=== PATIENT | female | born 1960 | race Caucasian/White ===

== ENCOUNTER 2019-11-05 12:19 | Emergency (ER) | payer OTHER, SELFPAY ==
[2019-11-05] VITALS (7 sets, daily range): BP systolic 110–147; BP diastolic 65–92; PULSE 67–84; RESP 16–20; TEMP 36.9; O2SAT 96–100
--- NOTE | ~2019-11-05 | CT_ITS ---
EXAMINATION: CT abdomen pelvis w con DATE: 11/05/2019 17:10 INDICATION: Left lower quadrant pain and diarrhea TECHNIQUE: Computed tomography (CT) of the abdomen and pelvis was performed with 100 cc Omnipaque 350 intravenous contrast. The dose-length product was 889.87 mGy-cm. Automated exposure control and iter ative reconstruction technique were employed. COMPARISON: None. FINDINGS: Lung bases are unremarkable. Heart size normal. No significant vascular abnormality. There is retroperitoneal, portacaval, mesenteric, right obturator and right inguinal lymphadenopathy. The liver, spleen, pancreas, adrenal glands and right kidney are unremarkable. There is a left renal cyst measuring 3.8 cm. Gallbladder is present. There are multiple segments of fluid-filled distended small bowel loops in the central abdomen with a few air-fluid levels. No acute osseous abnormality. IMPRESSION: 1. Multiple segments of mildly distended small bowel loops containing fluid with air-fluid levels whi ch may relate to infection/inflammatory process, adynamic ileus or partial obstruction. No definitive transition is identified. 2: Abdominal, pelvic and right inguinal lymphadenopathy. Consider metastatic disease and lymphoma. Th e right inguinal lymph nodes are amenable to percutaneous biopsy. Reviewed, dictated and finalized at location A. IMPRESSION: 1. Multiple segments of mildly distended small bowel loops containing fluid wit h air-fluid levels which may relate to infection/inflammatory process, adynamic ileus or partial obstruction. No definitive transition is identified. 2: Abdominal, pelvic and right inguinal lymphadenopathy. Consider metastatic di sease and lymphoma. The right inguinal lymph nodes are amenable to percutaneous biopsy.
[2019-11-05 13:38] LABS: Hematocrit 41.7 % (37.0-47.0); Hemoglobin 13.4 g/dL (12.0-15.0); Mean Corpuscular HGB Conc 32.1 g/dl (32-36); Mean Corpuscular Hemoglobin 28.6 pg (26-34); Mean Corpuscular Volume 88.9 fl (80-100); Mean Platelet Volume 11.4 fl (7.4-10.4); Platelet Count Result 176 k/mm3 (150-375); Red Blood Count 4.69 M/mm3 (4.2-5.4); Red Cell Distribution Width 14.9 % (11.5-14.5); White Blood Count 33.4 K/mm3 (4.5-10.0)
[2019-11-05 13:54] LABS: Alanine Aminotransferase 24 U/L (4-35); Albumin Level 4.1 g/dL (3.5-5.1); Alkaline Phosphatase 89 U/L (38-126); Aspartate Amino Transferase 30 U/L (14-36); Bilirubin,Total 0.6 mg/dL (0.2-1.3); Blood Urea Nitrogen 10 mg/dL (7-17); Calcium 8.8 mg/dL (8.4-10.2); Carbon Dioxide 26 mmol/L (22-30); Chloride 103 mmol/L (98-107); Estimated CRCL calculation 106 ml/min; Estimated Glomerular Filt Rate > 60; Glucose 132 mg/dL (65-105); Lipase 123 U/L (23-300); Potassium 3.9 mmol/L (3.4-5.0); Sodium 136 mmol/L (137-145)
[2019-11-05 14:11] LABS: Lymphocytes Absolute Manual 22.37 K/mm3 (1.1-4.5); Monocytes Absolute Manual 1.67 K/mm3 (0.1-0.90); Monocytes Percent Manual 5 % (3-9); Neutrophils Percent Manual 28 % (46-73); Platelet Estimate Adequate (Adequate); Total Cells Counted 100
[2019-11-05 14:12] LABS: Atypical Lymphocytes Present; Smudge Cells MODERATE
[2019-11-05 14:13] LABS: Hyperchromasia 2+ (NORMAL)
[2019-11-05 16:01] LABS: Add Urine Microscopic? YES; Appearance Urine Clear (Clear); Bacteria Urine Trace /hpf; Bilirubin Urine Negative (Negative); Blood Urine Negative (Negative); Color Urine Yellow (Yellow); Glucose Urine UA Negative (Negative); Ketones Urine Negative (Negative); Leukocyte Esterase Ur Negative LEU/UL (Negative); Mucus Urine Rare /lpf; Nitrate Urine Negative (Negative); Protein Urine Negative (Negative); Specific Grav Ur 1.021 (1.001-1.035); Squamous Epithelial Cell Urine Rare /hpf (Few); Urobilinogen Urine Negative mg/dL (<2.0); WBC Urine 0-3 /hpf
[2019-11-05] MEDS: MORPHINE SULFATE 4 MG/ML INJ IV PUSH (16:55)
--- NOTE | 2019-11-05 16:55 | ED.NAVMDI ---
HPI - Nausea/Vomiting/Diarrhea General Chief complaint: Nausea/Vomiting/Diarrhea Stated complaint: diarrhea x 1 week Time Seen by Provider: 11/05/19 15:56 History of Present Illness HPI Narrative: Patient is a 59-year-old female who presents to the ER with diarrhea. Reports anytime she eats she has explosive diarrhea nearly immediately for the last week. Has been able tolerate some crackers and Sprite. Reports she was out camping but did not drink any cisse water. No one around her has been sick. No blood in her stool. Has had no fevers or chills or sweats. She does have history of CLL. She does report history of diverticulosis. Patient reports pain in her left lower quadrant as well as her upper abdomen. She also reports that she has lymph node swelling to her right groin that is very tender. Related Data Allergies Allergy/AdvReac Type Severity Reaction Status Date / Time bupropion Allergy Severe Verified 05/14/16 17:51 ciprofloxacin Allergy Unknown Rash Verified 05/14/16 17:51 vancomycin AdvReac Unknown Verified 05/14/16 17:51 Review of Systems Review of Systems: All systems reviewed & are unremarkable except as noted in HPI and below Constitutional: Constitutional: Denies chills, Denies fever(s) and Denies weakness ENT: Denies nasal congestion and Denies sore throat Cardiovascular: Cardiovascular: Denies chest pain and Denies radiating jaw, neck or arm pain Respiratory: Respiratory: Denies cough, Denies dyspnea and Denies wheezing Gastrointestinal: Gastrointestinal: Reports abdominal pain, Reports diarrhea, Denies nausea and Denies vomiting PMFSH Past Medical History Medical History (Updated 11/05/19 @ 19:18 by Anatoliy Sargent MD) CLL (chronic lymphocytic leukemia) Diabetes type 2, controlled Diverticulosis DVT (deep venous thrombosis) Dyslipidemia Hypertension Stroke Surgical History Surgical History (Updated 11/05/19 @ 17:04 by Anatoliy Sargent MD) History of colonoscopy Social History Social History Gender identity (if verbalized by the patient): Female Exam Narrative: Exam Narrative: GENERAL: Well-appearing, well-nourished, and in no acute distress. HEAD: Normocephalic, atraumatic. ENT: Mucous membranes moist. CHEST: Clear to auscultation. No respiratory distress. HEART: Regular rate and rhythm. Normal peripheral pulses. ABDOMEN: Soft, tender palpation epigastrium in the left lower quadrant with mild guarding left lower quadrant, nondistended. Tender right inguinal lymphadenopathy. EXTREMITIES: Normal range of motion. No edema. SKIN: Warm, dry, no rash. NEURO: Alert and oriented x3. Course Course Emergency Course: Patient informed of results. Discharge home with antibiotics, antispasmodics, anti-gas, and anti-emetics. Patient reports she does not have a ciprofloxacin allergy. Vital Signs Vital signs: Vital Signs Temperature 98.4 F 11/05/19 12:22 Pulse Rate 84 11/05/19 12:22 Respiratory Rate 16 11/05/19 12:22 Blood Pressure 120/65 11/05/19 12:22 Pulse Oximetry 97 11/05/19 12:22 Temperature 98.4 F 11/05/19 15:51 Pulse Rate 70 11/05/19 18:00 Respiratory Rate 16 11/05/19 18:00 Blood Pressure 139/92 H 11/05/19 18:00 Pulse Oximetry 96 11/05/19 18:00 MDM - Nausea/Vomiting/Diarrhea Lab Data Result diagrams: 11/05/19 13:25 11/05/19 13:25 Labs: Lab Results 11/05/19 11/05/19 11/05/19 Range/Units 13:25 13:25 15:47 WBC 33.4 H (4.5-10.0) K/mm3 RBC 4.69 (4.2-5.4) M/mm3 Hgb 13.4 (12.0-15.0) g/dL Hct 41.7 (37.0-47.0) % MCV 88.9 (80-100) fl MCH 28.6 (26-34) pg MCHC 32.1 (32-36) g/dl RDW 14.9 H (11.5-14.5) % Plt Count 176 (150-375) k/mm3 MPV 11.4 H (7.4-10.4) fl Immature Gran % (Auto) Not Reportable Neut % (Auto) Not Reportable Lymph % (Auto) Not Reportable [place] % (Auto) Not Reportable Eos % (Auto) Not Reportable Baso % (Auto) No
[2019-11-05 18:28] LABS: Glucose Point of Care 126 (65-105)
== END 2019-11-05 19:50 | disposition home or self-care (01) ==
PROVIDERS: Emergency Medicine; Emergency Provider Emergency Medicine; PCP Physician Assistant
DX: K52.9 Noninfective gastroenteritis and colitis, unspecified (principal); R59.1 Generalized enlarged lymph nodes; Z85.6 Personal history of leukemia; E11.9 Type 2 diabetes mellitus without complications; Z86.718 Personal history of other venous thrombosis and embolism; E78.5 Hyperlipidemia, unspecified; Z86.73 Personal history of transient ischemic attack (TIA), and cerebral infarction without residual deficits; I10 Essential (primary) hypertension; K57.90 Diverticulosis of intestine, part unspecified, without perforation or abscess without bleeding
CPT/HCPCS: 36415; 74177; 80053; 81001; 82948; 83690; 85025; 96374; 99284; J2270; Q9967

== ENCOUNTER 2022-02-24 07:13 | Emergency (ER) | payer OTHER, SELFPAY ==
[2022-02-24] VITALS (13 sets, daily range): BP systolic 131–180; BP diastolic 73–112; PULSE 80–86; RESP 10–18; TEMP 36.1; O2SAT 94–98
--- NOTE | ~2022-02-24 | XR_ITS ---
XR chest 1V portable 02/24/2022 08:02 Indication: Fever and diarrhea. Flulike symptoms. Procedure: AP portable chest Comparison: 05/14/2016 Findings: Heart size normal. There is mild bilateral interstitial prominence. No pleural effusion or pneumothorax. Impression: 1: Mild bilateral interstitial prominence which may represent atypical pneumonia, bronchitis or mild edema. Reviewed, dictated and finalized at location A. Impression: 1: Mild bilateral interstitial prominence which may represent atypical pneumoni a, bronchitis or mild edema.
--- NOTE | 2022-02-24 07:29 | ECG_ITS ---
Measurements Intervals [place] Rate: 87 P: -76 TN: 158 QRS: 29 QRSD: 90 T: -39 QT: 376 QTc: 452 Interpretive Statements ELECTRONIC ATRIAL PACEMAKER ST DEVIATION AND MODERATE T-WAVE ABNORMALITY, CONSIDER ANTERIOR ISCHEMIA [-0.1+ mV T WAVE IN V3/V4] NO PREVIOUS ECG AVAILABLE FOR COMPARISON Electronically Signed On 02-26-2022 12:19:24 CDT by Elio Echols M.D.
[2022-02-24] MEDS: ACETAMINOPHEN 500 MG TABLET 1000 MG PO (07:44)
[2022-02-24] MEDS: IBUPROFEN 400 MG TABLET 800 MG PO (07:44)
[2022-02-24] MEDS: SODIUM CHLORIDE 0.9% IV 2,000 ML 999 ML IV CONT (07:45)
--- NOTE | 2022-02-24 07:45 | ED.GENADULT ---
HPI - General Adult General Chief complaint: Upper Respiratory Infection Stated complaint: N/V Time Seen by Provider: 02/24/22 07:21 History of Present Illness HPI narrative: this is a 61-year-old female with multiple medical problems presenting to ED with flu-like symptoms. Her symptoms started 5 days ago. They include fever, chills, body aches, nausea/vomiting diarrhea. Patient notes that she has had decreased oral intake over this period as well. She was started on Tamiflu yesterday and feels like she has gotten worse since then. Patient denies chest pain, difficulty breathing, abdominal pain, a and urinary symptoms. Related Data Allergies Allergy/AdvReac Type Severity Reaction Status Date / Time bupropion Allergy Severe Anaphylactic Verified 02/24/22 07:30 Shock ciprofloxacin Allergy Unknown Rash Verified 02/24/22 07:30 vancomycin AdvReac Unknown Redness of Verified 02/24/22 07:30 Skin Review of Systems Review of Systems: CONSTITUTIONAL: Denies night sweats. EYES: No eye pain ENT: Denies rhinorrhea CARDIOVASCULAR: Denies palpitations RESPIRATORY: Denies hemoptysis GASTROINTESTINAL: Denies hematemesis GENITOURINARY: Denies hematuria. SKIN: Denies rash MUSCULOSKELETAL: Denies myalgia. NEUROLOGIC: Denies weakness. PSYCHIATRIC: Denies delusions PMF Past Medical History Medical History CLL (chronic lymphocytic leukemia) Diabetes type 2, controlled Diverticulosis DVT (deep venous thrombosis) Dyslipidemia Hypertension Stroke Surgical History Surgical History History of colonoscopy Social History Social History (Updated 02/24/22 @ 07:47 by Pavel Vernon MD) Social History: occasional alcohol use, pack cigarettes every 2 days, daily marijuana use Gender identity (if verbalized by the patient): Female Exam Narrative: APPEARANCE: Patient appears uncomfortable Head atraumatic. EYES: PERRLA/EOMI, NOSE: Normal no drainage NECK: Supple, Trachea midline RESPIRATORY: CTAB, No increased work of breathing. CARDIOVASCULAR: S1S2 appreciated ABDOMINAL: Soft, nontender, nondistended, MUSCULOSKELETAl: No obvious deformities NEURO: Alert. Moving 4/4 extremities SKIN:: Warm, dry. Normal color PSYCHIATRIC: Normal affect Course Vital Signs Vital signs: Vital Signs Temperature 97 F L 02/24/22 07:14 Pulse Rate 80 02/24/22 07:14 Respiratory Rate 18 02/24/22 07:14 Blood Pressure 170/88 H 02/24/22 07:14 Oxygen Delivery Room Air 02/24/22 07:14 Temperature 97 F L 02/24/22 07:14 Pulse Rate 80 02/24/22 07:14 Respiratory Rate 18 02/24/22 07:14 Blood Pressure 170/88 H 02/24/22 07:14 Oxygen Delivery Room Air 02/24/22 07:14 Medical Decision Making MDM Narrative Medical decision making narrative: This is a 61-year-old female presenting to ED with 5 days of flu-like symptoms. Patient has already been diagnosed with flu and has recently started on Tamiflu. Given the patient's persistent nausea vomiting and diarrhea I am going to get basic lab work and give her 2 L of fluid. She will be treated symptomatically with Motrin and Tylenol. Patient's laboratory studies were within normal values. EKG interpretation: Rhythm [sinus], Rate 87, [place] -[normal], [place] -[normal], QRS [narrow], QTC [normal], T waves -[negative for concerning inversions], ST Segments - [Negative for concerning elevations] Final interpretations: [Normal Sinus Rhythm] Chest x-ray showed some mild interstitial prominence is consistent with bronchitis. Upon re-evaluation the patient states she is feeling better. She will be discharged with instructions to drink plenty of fluids and take Motrin Tylenol for symptom control. Vital Signs Vital Signs: Vital Signs Temperature 97 F L 02/24/22 07:14 Pulse Rate 80 02/24/22 07:14 Respiratory Rate 18 02/24/22 07:14 Blood Pressur
[2022-02-24 07:50] LABS: Basophils Percent Auto 0.3 % (0.2-1.2); Eosinophils Percent Auto 0.2 % (0-4.4); Hematocrit 43.6 % (37.0-47.0); Hemoglobin 14.4 g/dL (12.0-15.0); Immature Granulocyte Absolute 0.03 K/mm3 (0.00-0.031); Immature Granulocyte Percent A 0.3 % (0-0.5); Lymphocytes Percent Auto 66.7 % (18.3-44.2); Mean Corpuscular Hemoglobin 29.2 pg (26-34); Mean Corpuscular Volume 88.4 fl (80-100); Mean Platelet Volume 11.8 fl (7.4-10.4); Monocytes Absolute Auto 0.7 K/mm3 (0.1-0.6); Monocytes Percent Auto 5.6 % (2.6-8.5); Neutrophils Absolute Auto 3.2 K/mm3 (1.3-6.7); Neutrophils Percent Auto 26.9 % (45.5-73.1); Platelet Count Result 152 k/mm3 (150-375); Red Blood Count 4.93 M/mm3 (4.2-5.4); Red Cell Distribution Width 14.9 % (11.5-14.5); White Blood Count 11.7 K/mm3 (4.5-10.0)
[2022-02-24 08:10] LABS: Anion Gap 14 mmol/L (8-16); Blood Urea Nitrogen 9 mg/dL (7-17); Calcium 8.6 mg/dL (8.4-10.2); Carbon Dioxide 24 mmol/L (22-30); Chloride 105 mmol/L (98-107); Estimated CRCL calculation 103 ml/min; Estimated Glomerular Filt Rate > 60; Glucose 192 mg/dL (65-110); Magnesium 1.6 mg/dL (1.6-2.3); Potassium 3.6 mmol/L (3.4-5.0); Sodium 143 mmol/L (137-145)
--- NOTE | 2022-03-14 09:51 | PC.NURSE ---
LATE ENTRY This note is being entered to document information to the patient's record. The following information was omitted on [02/24/22], by [Sirena Royal RN]. NS stop time is 0845am
== END 2022-02-24 10:03 | disposition home or self-care (01) ==
PROVIDERS: Emergency Provider Emergency Medicine; PCP Physician Assistant
DX: J10.1 Influenza due to other identified influenza virus with other respiratory manifestations (principal); C91.10 Chronic lymphocytic leukemia of B-cell type not having achieved remission; E11.9 Type 2 diabetes mellitus without complications; E78.5 Hyperlipidemia, unspecified; I10 Essential (primary) hypertension; Z86.73 Personal history of transient ischemic attack (TIA), and cerebral infarction without residual deficits; Z86.718 Personal history of other venous thrombosis and embolism; F17.210 Nicotine dependence, cigarettes, uncomplicated; Z95.0 Presence of cardiac pacemaker; R94.31 Abnormal electrocardiogram [ECG] [EKG]
CPT/HCPCS: 36415; 71045; 80048; 83735; 85025; 93005; 96360; 99283; A9270; J7030